=== PATIENT | female | born 1975 | race Two or more races ===

== ENCOUNTER 2021-02-08 17:58 | Emergency (ER) | payer OTHER ==
[~2021-02-08] VITALS: Ht 154.9 cm; Wt 63.5 kg
--- NOTE | 2021-02-08 18:12 | NUR ---
Patient bibs c/o left ankle and knee pain 7/10 pain scale, twisted her ankle at work. no sob noted, no s/o any acute distress. able to to make needs known. Breathing even and unlabored. Stable on RA. Kept Comfortable. will continue with plan of care
[2021-02-08] MEDS ORDERED: IBUP-1955 PO (21:12)
--- NOTE | 2021-02-08 22:02 | NUR ---
Patient discharged to home in stable condition. Written and verbal after care instructions given. Patient verbalizes understanding of instruction. Pt ambulated out of ED. VSS. Refused crutches.
[2021-02-08 22:26] VITALS: BP 132/72
== END 2021-02-08 22:26 | disposition home or self-care (01) ==
LOC: ER 18:09
DX: S89.82XA Other specified injuries of left lower leg, initial encounter (principal); S99.822A Other specified injuries of left foot, initial encounter; M25.572 Pain in left ankle and joints of left foot; X50.1XXA Overexertion from prolonged static or awkward postures, initial encounter; Y93.89 Activity, other specified; Y92.89 Other specified places as the place of occurrence of the external cause; Y99.0 Civilian activity done for income or pay
CPT/HCPCS: 73564-TC; 73590-TC; 73610-TC; 73630-TC